=== PATIENT | male | born 1970 | race Caucasian/White ===

== ENCOUNTER 2020-03-13 19:17 | Emergency (ER) | payer OTHER, SELFPAY ==
--- NOTE | ~2020-03-13 | XR_ITS ---
EXAMINATION: XR lumbar spine 2-3V DATE: 03/13/2020 19:56 INDICATION: Low back pain. Injury. TECHNIQUE: 3 views of lumbar spine were obtained. COMPARISON: Lumbar spine radiograph 02/01/2009 FINDINGS: There is hypolordosis of lumbar spine. There is mild chronic anterior wedging of T12-L2 rebekah tebral bodies. There is mildly decreased disc height at L1-L2, moderately decreased disc height at L2 -L3, mildly decreased disc height at L4-L5, and moderately decreased disc height at L5-S1. There is m ultilevel mild facet joint osteoarthritis. IMPRESSION: 1. Moderate lumbar spondylosis. Reviewed, dictated and finalized at location A.
[2020-03-13 19:21] VITALS: BP 137/72; PULSE 76; RESP 15; TEMP 36.9; O2SAT 96
--- NOTE | 2020-03-13 19:38 | ED.BACK ---
HPI - Back Pain/Injury General Chief Complaint: Back Pain/Injury Stated Complaint: back pain Time Seen by Provider: 03/13/20 19:38 Source: patient Mode of arrival: ambulatory Limitations: no limitations History of Present Illness HPI Narrative: 50 year-old man with history of lumbar spine surgery comes in today complaining of low back pain that started yesterday after he bent over. states the pain was sudden and he has difficulty standing up straight since. He states it feels like his right leg is falling asleep, and the sensation is all the way down to his foot. He had a mike placed in his back years ago after a back injury. He denies incontinence. MD elicited complaint: back pain Pertinent past history: prior back pain and neurological deficit Onset (ago): day(s) (1) Timing: constant Severity: severe Similar Symptoms Previously: No Quality: sharp and aching Location: lumbar spine Radiation: right upper leg Exacerbating factors: other ( Standing) Relieving factors: other ( rest, sitting) Context: while lifting Associated symptoms: parasthesias Treatments prior to arrival: NSAIDS Work related injury: No Related Data Allergies Allergy/AdvReac Type Severity Reaction Status Date / Time aspirin Allergy Mild Verified 04/15/14 17:38 Penicillins Allergy Unknown Verified 04/15/14 17:38 Review of Systems Constitutional: Constitutional: Denies chills and Denies fever(s) Cardiovascular: Cardiovascular: Denies chest pain and Denies radiating jaw, neck or arm pain Respiratory: Respiratory: Denies cough and Denies dyspnea Gastrointestinal: Gastrointestinal: Denies nausea and Denies vomiting Genitourinary: Genitourinary: Denies urinary incontinence Musculoskeletal: Musculoskeletal: Reports back pain, Denies arthralgias and Denies joint swelling Integumentary/Breasts: Skin/Breast: Denies pruritus, Denies erythema and Denies rash Neurologic: Denies vertigo, Denies dizziness and Denies syncope Endocrine: Endocrine: Denies polydipsia and Denies polyuria Hematologic/Lymphatic: Hematologic/Lymphatic: Denies easy bleeding and Denies easy bruising Allergic/Immunologic: Allergic/Immunologic: Denies lip swelling and Denies wheezing PMFSH Past Medical History Medical History Type 2 diabetes mellitus Surgical History Surgical History H/O lumbosacral spine surgery Social History Social History Smoking status: Current every day smoker Alcohol intake: current Alcohol use details: rarely Substance use: never Living arrangements: with family Exam Const: General: healthy appearing and alert Orientation/consciousness: patient oriented x3 Limitations: no limitations Other: moderate acute distress. HENMT: Mouth: Yes moist mucous membranes Throat: posterior oropharynx normal Eyes: Conjunctivae: conjunctivae normal Pupils: Equal, round and reactive pupils present EOM: EOMs intact bilaterally Resp: Effort & Inspection: normal respiratory effort and not labored Auscultation: clear to auscultation bilaterally, no rales, no rhonchi and no wheezes Cardio: Rate: regular rate Rhythm: regular rhythm Heart sounds: no murmurs Back/Spine/Pelvis: Other: Tenderness to palpation over L5 and the upper part of the sacrum. There is no erythema, swelling, rash, or abnormal contour. Skin: General skin exam: normal color, no jaundice and no pallor Rashes: no rashes Neuro: General: patient oriented x3, moves all extremities, no focal motor deficits and CN's II-XI intact bilaterally Speech: normal speech Gait exam (Neuro): Normal gait present ( Antalgic) Extrem: General: normal to inspection and no clubbing, cyanosis or edema Psych: Appearance: grossly normal and well kempt Mental Status: mental status grossly normal Affect: normal affect Attitude: coop
[2020-03-13 20:56] VITALS: RESP 20; O2SAT 100
== END 2020-03-13 21:00 | disposition home or self-care (01) ==
PROVIDERS: Emergency Provider Emergency Medicine
DX: S39.012A Strain of muscle, fascia and tendon of lower back, initial encounter (principal); M54.10 Radiculopathy, site unspecified
CPT/HCPCS: 72100; 99283; A9270

== ENCOUNTER 2022-04-05 18:53 | Emergency (ER) | payer OTHER, SELFPAY ==
[2022-04-05 18:58] VITALS: BP 120/72; PULSE 96; RESP 20; TEMP 36.6; O2SAT 97
--- NOTE | 2022-04-05 19:07 | ED.SKABFB ---
HPI - Skin/Abscess/Foreign Bdy General Stated complaint: back of left leg bites Time Seen by Provider: 04/05/22 19:07 History of Present Illness HPI narrative: PATIENT PRESENTS WITH A SPIDER BITE TO THE BACK OF HIS LEFT LEG PATIENT STATES HE THINKS HE WAS BIT TWO DAYS AGO NO DRAINAGE AREA WARM AND TENDER TO TOUCH Related Data Allergies Allergy/AdvReac Type Severity Reaction Status Date / Time aspirin Allergy Mild Verified 04/15/14 17:38 Penicillins Allergy Unknown Verified 04/15/14 17:38 Review of Systems Review of Systems: CONSTITUTIONAL: Denies fever, chills, or sweats. EYES: Denies visual changes, redness, or discharge. ENT: Denies rhinorrhea, congestion, sore throat, or otalgia. CARDIOVASCULAR: Denies chest pain, palpitations, or edema. RESPIRATORY: Denies cough or dyspnea. GASTROINTESTINAL: Denies abdominal pain, nausea, vomiting, or diarrhea. GENITOURINARY: Denies dysuria or hematuria. SKIN: Denies rash or itching. MUSCULOSKELETAL: Denies back pain, joint pain, or myalgia. NEUROLOGIC: Denies headache, numbness, or weakness. PSYCHIATRIC: Denies anxiety or depression. [facility] Past Medical History Medical History (Updated 04/05/22 @ 19:11 by ELICEO Chavez) Type 2 diabetes mellitus Surgical History Surgical History H/O lumbosacral spine surgery Social History Social History Smoking status: Current every day smoker Alcohol intake: current Alcohol use details: rarely Substance use: never Comments At time of signature, agree with nursing past medical, surgical, social and family history. There is no relevant family history pertinent to the presenting complaint Exam Narrative: GENERAL: Well-appearing, well-nourished, and in no acute distress. HEAD: Normocephalic, atraumatic. EYES: PERRLA and EOMI. ENT: Nares clear, no rhinorrhea or epistaxis. Mucous membranes moist. NECK: Supple. CHEST: Clear to auscultation. No respiratory distress. HEART: Regular rate and rhythm. No murmur heard. Normal peripheral pulses. ABDOMEN: Soft, nontender, nondistended, normal active bowel sounds. EXTREMITIES: Normal range of motion. No edema. NEURO: No focal deficits. Alert and oriented x3. [place] Coma Scale Eye Opening: Spontaneous 4 [place] Coma Scale Motor: Obeys Commands 6 [place] Coma Scale Verbal: Oriented 5 [place] Coma Scale Total 15 GENERAL: Well-appearing, well-nourished, and in no acute distress. HEAD: Normocephalic, atraumatic. EYES: PERRLA and EOMI. ENT: Nares clear, no rhinorrhea or epistaxis. Mucous membranes moist. NECK: Supple. CHEST: Clear to auscultation. No respiratory distress. HEART: Regular rate and rhythm. No murmur heard. Normal peripheral pulses. ABDOMEN: Soft, nontender, nondistended, normal active bowel sounds. EXTREMITIES: Normal range of motion. No edema. SKIN: Warm, dry, no rash. 2 areas to the back of his left flank consistent with a developing abscess. No induration no fluctuance 2 cm surrounding erythremia to both abscesses. No drainage. No indication for I&D. NEURO: No focal deficits. Alert and oriented x3. [place] Coma Scale Eye Opening: Spontaneous 4 [place] Coma Scale Motor: Obeys Commands 6 [place] Coma Scale Verbal: Oriented 5 [place] Coma Scale Total 15 Course Course Level of Care: Express Care Visit Vital Signs Vital signs: Vital Signs Temperature 36.6 C 04/05/22 18:58 Pulse Rate 96 04/05/22 18:58 Respiratory Rate 20 04/05/22 18:58 Blood Pressure 120/72 04/05/22 18:58 Pulse Oximetry 97 04/05/22 18:58 Oxygen Delivery Room Air 04/05/22 18:58 Temperature 36.6 C 04/05/22 18:58 Pulse Rate 96 04/05/22 18:58 Respiratory Rate 20 04/05/22 18:58 Blood Pressure 120/72 04/05/22 18:58 Pulse Oximetry 97 04/05/22 18:58 Oxygen Delivery Room Air 04/05/22 18:58 MDM - Skin/Abscess/Foreign Bdy Differential Diagnosi
[2022-04-05 19:12] VITALS: BP 120/72; PULSE 96; RESP 20; TEMP 36.6; O2SAT 97
== END 2022-04-05 19:15 | disposition home or self-care (01) ==
PROVIDERS: Emergency Provider Nurse Practitioner Family
DX: L02.416 Cutaneous abscess of left lower limb (principal); S80.862A Insect bite (nonvenomous), left lower leg, initial encounter; W57.XXXA Bitten or stung by nonvenomous insect and other nonvenomous arthropods, initial encounter; E11.9 Type 2 diabetes mellitus without complications
CPT/HCPCS: 99211; G0463